=== PATIENT | female | born 2005 | race Caucasian/White ===

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

== ENCOUNTER 2025-04-16 08:04 | Outpatient (REF) | payer OTHER, SELFPAY ==
[2025-04-16 10:18] LABS: MANUAL DIFF FLAG NO
[2025-04-16 10:29] LABS: Appearance Urine Clear; Glucose Urine UA Negative (Negative); PH 5.5 (5.0-9.0); Specific Gravity - Urine >= 1.030 (1.005-1.025)
[2025-04-16 10:39] LABS: Hematocrit 37.6 % (37.0-47.0); Hemoglobin 12.3 g/dl (12.0-16.0); Imm Gran Abs Auto 0.02 X10*3/uL (0.00-0.03); Imm Gran Pct Auto 0.3 % (0.0-0.4); Lymphocytes Absolute Auto 2.2 X10*3/uL (1.2-4.9); Mean Corpuscular HGB Conc 32.7 g/dl (31.0-35.0); Mean Corpuscular Hemoglobin 28.0 pg (27.0-33.0); Mean Corpuscular Volume 85.6 fL (80.0-98.0); NRBC Abs Auto 0.000 X10*3/uL (0.0-0.012); NRBC Pct Auto 0.0 /100WBC (0.0-0.2); Platelet Count 272 X10*3/uL (160-400); Red Blood Count 4.39 X10*6/uL (4.20-5.50); White Blood Count 6.3 X10*3/uL (4.8-10.8)
[2025-04-16 11:19] LABS: Alanine Aminotransferase 19 U/L (0-31); Albumin Level 4.9 g/dL (3.5-5.0); Alkaline Phosphatase 49 U/L (39-117); Anion Gap 11 (12-20); Aspartate Amino Transferase 20 U/L (5-31); Blood Urea Nitrogen 12 mg/dL (9-16); Calcium 9.3 mg/dL (8.4-10.2); Carbon Dioxide 24 mmol/L (22-29); Chloride 109 mmol/L (96-108); Cholesterol 164 mg/dL (<200); Estimated Glomerular Filt Rate > 60; HDL Cholesterol 44 mg/dL (>40); Potassium 3.7 mmol/L (3.3-5.1); Sodium 140 mmol/L (135-145); Total Protein 7.2 g/dL (6.5-8.0); Triglycerides 66 mg/dL (<150)
== END 2025-04-16 08:05 | disposition home or self-care (01) ==
LOC: HO.HMGCLDS 08:04
PROVIDERS: PCP Internal Medicine; Visit Provider Internal Medicine
DX: Z00.00 Encounter for general adult medical examination without abnormal findings (principal)
CPT/HCPCS: 36415; 80053; 80061; 81001; 84443; 85025; 96127

== ENCOUNTER 2025-04-16 08:04 | Outpatient (AMB) | payer OTHER, SELFPAY ==
--- OUTSIDE RECORDS SUMMARY | 2025-04-16 08:07 | XMS_ITS | Encounter Summary ---
Author Organization [facility] Address [address] [place] [id number] Care Team Providers Care Adolescent Medicine Specialist Name Role Phone None, Pcp Primary Care Provider Unavailabl e Anna Garsia MD Unavailable [phone] None, Pcp Primary Care Provider Unavailabl e Encounter Details Date Type Department Care Team (Late st Contact Info) Description 02/23/2024 Lab Requisition [facility] [address] [place] [address] [phone] Anastasia Ziegler NP [address] [place] [address] Acute pharyngitis, unspecified Social History Tobacco Use Types Packs/Day Years Used Date Smoking Tobacco: Never Assessed Comments Unknown Sex and Gender Information Value Date Recorded Sex Assigned at Not on file Legal Sex Female 6:42 PM EST Gender Identity Not on file Sexual Orientation Not on file documented as of this encounter Plan of Treatment Not on file documented as of this encounter Procedures Procedure Name Priority Date/Time Associated Diagnosis Comments CULTURE, AEROBIC, STREP A, THROAT Routine 02/23/2024 6:42 PM EST Acute pharyngitis, unspecified documented in this encounter Results * Culture, Aerobic, Strep A, throat (02/23/2024 6:42 PM EST) Culture No Beta hemolytic Streptococcus group A, C or G HAFSA 02/26/2024 3:24 PM EST [facility] Respiratory STRUCTURE OF ANTERIOR REGION OF NECK / Unknown 02/23/2024 6:42 PM EST 02/23/2024 6:42 PM EST Anastasia Ziegler TECHNOLOGY TRAINING ASSOCIATE MICROBIOLOGY - GENERAL ORDERA BLES Final Result [facility] [address] [facility] [place] [address], documented in this encounter Visit Diagnoses Diagnosis Acute pharyngitis, unspecified documented in this encounter Care Teams Adolescent Medicine Specialist Relationship Specialty Start Date End Date None, MD Bel PCP - General 01/21/24 07/15/24 Anna Garsia MD [address] [place] [address] PCP - Insurance Assigned PCP 02/23/24 None, MD Bel PCP - General 07/16/24 documented as of this encounter
--- OUTSIDE RECORDS SUMMARY | 2025-04-16 08:07 | XMS_ITS | Clinical Summary ---
Author Organization [facility] Address [address] [place] [id number] Phone Care Team Providers Care Burglar Alarm Inspector Name Role Phone Anna Garsia MD Primary Care Provider [phone] Allergies No known active allergies Medications No known medications Active Problems Problem Noted Date Diagnosed Date History of COVID-19 01/05/2022 Overview (01/05/2022): Tested positive via rapid antigen testing at home on 01/05/22. Mild symptoms at time of diagnosis. Chronic back pain 02/17/2021 Assessment & Plan (10/17/2023 11:14 AM EDT): Unchanged, no worse, it's alright Assessment & Plan (02/17/2021 4:35 PM EDT): [facility] when Dr. Escobedo was her PCP. Did some PT, without relief. Wishes to have another consult, [facility] discussed, mother will call. Menorrhagia with regular cycle 02/17/2021 Assessment & Plan (10/17/2023 11:28 AM EDT): Rose Marie reports that menses have been good, no concerns today Assessment & Plan (02/20/2021 2:31 AM EDT): Not screened for anemia since transfer here as a patient last year. CBC and Von Willebrand studies discussed. Consider OCP for improvement in menses. Anxiety 02/17/2021 Assessment & Plan (10/17/2023 11:26 AM EDT): Denies any concerns about anxiety or depression currently. Screens are negative today. She is very excited about the transition to college this fall! Assessment & Plan (02/20/2021 2:43 AM EDT): Encourage working with one of the behavioral health clinicians at [facility]. Warm handoff encouraged; Rose Marie did not feel prepared to do this and preferred to come back on a different day. Resolved Problems Problem Noted Date Diagnosed Date Resolved Date Acne vulgaris 06/27/2020 10/17/2023 Overview (06/27/2020): mixed type on face and back Need for case management follow-up 01/22/2020 10/17/2023 Overview (01/22/2020): Needs teen urine screen. Immunizations Immunization Administration Dates Next Due COVID-19 Pfizer, bivalent, 12+ years 03/30/2022 DTaP 10/08/2008, 6,01/31/2005,01/28,2004 HPV Vaccine 9 Valent 02/17/2021,06/04/2020,01/14 Hep A, ped/adol 04/25/2012,12/03/2009 Hep B, ped/adol 03/30/2005,01/31/2005,2004 HiB 03/30/2005,01/31/2005,2004 IPV 10/08/2008, 5,01/31/2005,12/08 Influenza, injectable, quadr ivalent, preservative free 03/30/2022,02/17/2021,01/15/2020 MMR 10/08/2008,2005 Meningococcal B Trumenba 10/17/2023,03/30/2022 Meningococcal Conj (Menactra) MCV4P 02/17/2021,0 12/23/2016 Meningococcal Conj (Menveo) MCV4O 12/23/2016 Pneumococcal Conjugate 2005,2004,01/31/2005,12/08 Tdap 12/18/2015 Varicella 10/08/2008,2005 Family History Medical History Relation Name Comments No Known Problems Father [address] COPD Maternal Grandfather Diabetes Maternal Grandmother Hypertension Maternal Grandmother Obesity Mother Sammie Tim Colon cancer Paternal Grandfather Kidney failure Paternal Grandfather Scoliosis Paternal Grandmother OCD Sister [address] OCD Sister [address] Relation Name Status Comments Father [address] Alive Maternal Grandfather Alive Maternal Grandmother Alive Mother Sammie Tim Alive Paternal Grandfather Paternal Grandmother Alive Sister [address] Alive Sister [address] Alive Social History Tobacco Use Types Packs/Day Years Used Date Smoking Tobacco: Never Smokeless Tobacco: Never Tobacco Cessation:Counseling Given: Not Answered Alcohol Use Standard Drinks/Week Comments Never 0 (1 standard drink = 0.6 oz pur e alcohol) Hunger/Food Answer Date Recorded In the last 12 months, did y ou or your family ever eat less than you felt you should because there wasn't enough money for food? No 10/17/2023 Stable Housing Answer Date Recorded Are you worried that in the next 2 months you may not have stable housing? No 10/17/2023 Transportation Concerns Answer Date Rec orded In the last 12 months, have you or your family ever had to go without healthcare because you didn't have a way to get there? No 10/17/2023 Hazards in Home Answer Date Recorded Think about the place you li ve. Do you have problems with any of the following? Pests (mice or roaches), mold, no/not working smoke detectors, water leaks, no window guards. No 2023 Financing Utilities Answer Date Recorde d In the last 12 months, has t he electric, gas, oil, or water company threatened to shut off your services in your home? No 10/17/2023 Safety at Home Answer Date Recorded Are you or your family worried about feeling saf e in your home? No 10/17/2023 Outside Support Answer Date Recorded Do you feel that you need mo re support from other people or programs to help you care for yourself or your family? No 10/17/2023 Understanding Health Concerns Answer Da te Recorded Do you need help understandi ng your or your child's healthcare needs (diagnosis, medications, plan, etc.)? No 10/17/2023 Financing Health Concerns Answer Date R ecorded In the last 12 months, was t here a time when your child needed to see a doctor or get medications or supplies but could not because of cost? No 10/17/2023 Missing School or Work Answer Date David rded Did you or your child miss s chool or work because of a health problem that could have been avoided? No 10/17/2023 Child Education Answer Date Recorded Do you have concerns about y our/your child's learning or behavior in school, preschool, or daycare? No 10/17/2023 Comments No Sex and Gender Information Value Date Recorded Sex Assigned at Female 10/17/2023 11:28 AM EDT Legal Sex Female 1:37 PM EDT Gender Identity Female 02/25/2023 11:18 AM EST Sexual Orientation Straight 10/17/2023 11 :28 AM EDT Last Filed Vital Signs Vital Sign Reading Time Taken Comments Blood Pressure 108/73 10/17/2023 10:59 AM EDT Pulse 76 10/17/2023 10:59 AM EDT Temperature 36.7 C (98 F) 06/01/2022 2:49 PM EST Respiratory Rate - - Oxygen Saturation - - Inhaled Oxygen Concentration - - Weight 45 kg (99 lb 4 oz) 10/17/2023 10:59 AM ED T Height 160 cm (5' 3 ) 10/17/2023 10:59 AM EDT Body Mass Index 17.58 10/17/2023 10:59 AM EDT Plan of Treatment Health Maintenance Due Date Last Done Comments Chlamydia and Gonorrhea Screening 04/19/2024 10/17/2023, 03/30/2022, 03/30/2022, Additional history exists Influenza Vaccines (#1) 2024 03/30/20, 02/17/2021, 01/15/2020 COVID-19 Vaccine ( season) 2024 03/30/2022, 04/13/2021, 09/29/2020, Additional history exists DTaP,Tdap,and Td Vaccines (6 - Td or Tdap) 12/17/2025 12/18/2015, 10/08/2008, 01/14/2006, Additional history exists HIB Vaccines Aged Out 03/30/2005, 01/17, 2004 No longer eligible based on patient's age to complete this topic Hepatitis B Vaccines Completed 03/30/2005, 01/31/2005, 2004 Pneumococcal Vaccine Completed 2005, 03/30/2005, 01/31/2005, Additional history exists IPV Vaccines Completed 10/08/2008, 03/19, 01/31/2005, Additional history exists MMR Vaccines Completed 10/08/2008, 2005 Varicella Vaccines Completed 10/08/2008, 2005 Hepatitis A Vaccines Completed 04/25/2012, 12/04/19 10 HPV Vaccines Completed 02/17/2021, 05/20, 01/15/2020 Meningococcal Vaccine Completed 02/17/2021 , 12/23/2016, 12/23/2016 Men B Vaccine Completed 10/17/2023, 03/30/2022 Procedures * Due to [place] [employer] law, this organization might not be sharing sensitive test results. Procedure Name Priority Date/Time Associated Diagnosis Comments CHLAMYDIA AND GONORRHEA, AMPLIFIED Routine 10/17/2023 11:04 AM EDT Well adult exam from Last 3 Months or Most Recently Relevant to Health Maintenance Results * Due to [place] [employer] law, this organization might not be sharing sensitive test results. * Chlamydia and Gonorrhoea, Amplified (Urine) (10/17/2023 11:04 AM EDT) C trach JIGAR Negative Negative [facility] N gonorrhoeae JIGAR Negative Negative [facility] Urine (Urine, Random (not clean void)) 10/17/2023 11:04 AM EDT 10/17/2023 Comment:Urine, Rando Narrative [facility] - 10/18/2023 7:06 PM EDT Performed at: [address] - [facility], [address], [place], [place] [id number] Fastener Sewing Machine Operator: Justin Ocampo MD, Phone: [phone] us Lety Tom NP LAB MICROBIOLOGY - GENERAL ORDER CHRIS Final Result [facility] [address] [place] [address] from Last 3 Months or Most Recently Relevant to Health Maintenance Insurance [facility] Care Teams Burglar Alarm Inspector Relationship Specialty Start Date End Date Anna Garsia MD [address] [place] [id number] PCP - General Pediatrics 12/22/19
--- OUTSIDE RECORDS SUMMARY | 2025-04-16 08:07 | XMS_ITS | Clinical Summary ---
Author Organization [facility] Address [address] [place] [address] Care Team Providers Care Steel Plate Printer Name Role Phone Anna Garsia MD Unavailable [phone] None, Pcp Primary Care Provider Unavailabl e Allergies No known active allergies Medications ondansetron (ZOFRAN-ODT) 4 MG disintegrating tablet Take 1 tablet (4 mg total) by mouth every 8 hours as needed for nausea. 10 tablet 5 Active polyethylene glycol (GLYCOLAX) 17 gram powder Take 17 g by mouth daily. 116 g 5 Active Social History Tobacco Use Types Packs/Day Years Used Date Smoking Tobacco: Never Assessed Comments Unknown Sex and Gender Information Value Date Recorded Sex Assigned at Not on file Legal Sex Female 6:42 PM EST Gender Identity Not on file Sexual Orientation Not on file Last Filed Vital Signs Vital Sign Reading Time Taken Comments Blood Pressure 125/88 07/16/2024 3:54 PM EDT Pulse 92 07/16/2024 3:54 PM EDT Temperature 37.1 C (98.7 F) 07/16/2024 3:54 PM EDT Respiratory Rate 20 07/16/2024 3:54 PM EDT Oxygen Saturation 100% 07/16/2024 3:54 PM EDT Inhaled Oxygen Concentration - - Weight 45.4 kg (100 lb) 07/16/2024 3:54 PM EDT Height 157.5 cm (5' 2 ) 07/16/2024 3:54 PM EDT Body Mass Index 18.29 07/16/2024 3:54 PM EDT Plan of Treatment Health Maintenance Due Date Last Done Comments Depression Screening 2016 Chlamydia and Gonorrhea Screening 09/29/2019 Hepatitis C Screening 2022 COVID-19 Vaccine ( season) 2024 03/30/2022 Influenza Vaccine (#1) 2024 , 02/17/2021, 01/15/2020 DTaP,Tdap,and Td Vaccines (6 - Td or Tdap) 12/17/2025 12/18/2015, 10/08/2008, 01/14/2006, Additional history exists Blood Pressure 07/16/2028 07/16/2024 Pneumococcal Vaccine Aged Out 2005, 03/30/2005, 01/31/2005, Additional history exists No longer eligible based on patient's age to complete this topic Meningococcal Vaccines Completed , 12/23/2016, 12/23/2016 Meningococcal B Vaccines Completed 10/17/2023, 03/19 Insurance Care Teams Steel Plate Printer Relationship Specialty Start Date End Date Anna Garsia MD [address] [place] [address] PCP - Insurance Assigned PCP 02/23/24 None, MD Bel PCP - General 07/16/24
--- NOTE | 2025-04-16 08:16 | A.OFFPC_ITS ---
Vital Signs 04/16/25 08:17 Height 5 ft 2 in Weight 100 lb BMI 18.3 BP 108/64 Blood Pressure Location Rt brachial Position Sitting Respiration 16 Pulse 74 Pulse Source Pulse Oximeter Temp 98.5 F Temp Source Oral Pulse Oximetry (%) 97 Oxygen Delivery Method Room Air Intake Visit Reasons: ALLERGY AND IMMUNOLOGY SPECIALIST Intake Note: Pt is here today for New patient visit PE. Allergies No Known Allergies Allergy (Verified 04/16/25 08:19) Medication List - Last Reconciled 04/16/25 by Corine Salazar MD No Known Home Meds Tobacco use date assessed: 04/16/25 Dental Screening Dental Screen Date: 04/16/25 Did you have a dental visit in the last 12 months?: Yes Did you have a dental problem in the last 6 months where you did not have access to dental care?: No Was dental information given to patient?: Patient has dentist HPI ALLERGY AND IMMUNOLOGY SPECIALIST HPI Details Patient presents for new patient physical PFSH Medical History (Updated 04/16/25 @ 10:55 by Corine Salazar MD) Annual physical exam Surgical History (Updated 04/16/25 @ 08:22 by RUSTAM Wen) No pertinent past surgical history Family History (Updated 04/16/25 @ 08:23 by RUSTAM Wen) Father No problems noted. Mother No problems noted. Social History Housing: House Patient Tobacco Use Status: Never used Tobacco e-Cigarette/Vaping Use: Never Used service: No Current occupational status: student Cognitive needs: No Hearing needs: No Vision needs: Yes Questionnaire PHQ-9 Over the last 2 weeks, how often have you been bothered by any of the following problems? 1. Little interest or pleasure in doing things: not at all 2. Feeling down, depressed, or hopeless: not at all 3. Trouble falling or staying asleep, or sleeping too much: not at all 4. Feeling tired or having little energy: not at all 5. Poor appetite or overeating: not at all 6. Feeling bad about yourself - or that you are a failure or have let yourself or your family down: not at all 7. Trouble concentrating on things, such as reading the newspaper or watching television: not at all 8. Moving or speaking so slowly that other people could have noticed. Or the opposite - being so fidgety or restless that you have been moving around a lot more than usual: not at all 9. Thoughts that you would be better off or of hurting yourself in some way: not at all Total score: 0 Depression Screening Interpretation: Negative Depression Screening Done: Yes 81939 - PHQ-9 Billing: Yes Source: Developed by Drs. David Gordillo, Elba Viveros, Shahram Goldstein and colleagues, with an educational kandace from [employer]. Thrive Questionnaire Date Thrive assessed: 04/16/25 I am a: Patient What is your living situation today?: I have a steady place to live Within the past 12 months, did the food you bought not last and you didn't have the money to get more?: Never true Within the past 12 months, did you worry whether your food would run out before you got money to buy more?: Sometimes True Do you have trouble paying for medicines?: No Do you have trouble getting transportation to medical appointments?: No Do you have trouble paying your heating and electricity bill?: No Do you have trouble taking care of your child, family member or friend?: No Do you have trouble with day-to-day activities such as bathing, preparing meals, shopping, managing finances, etc.?: No Are you currently unemployed and looking for a job?: No Are you interested in more education?: Yes Please select the resources that you would like help with: None Currently or been in a relationship where the following occur: No concerns reported THRIVE Score: 1 AUDIT C Alcohol Use Questionnaire (AUDIT-C) 1. How often do you have a drink containing alcohol?: Monthly or less 2. How many drinks containing alcohol do you have on a typical day when you are drinking?: 1 or 2 3. How often do you have six or more drinks on one occasion?: Never Total Score: 1 BETO-7 AMB Questionnaire BETO-7 Date BETO - 7 assessed: 04/16/25 Feeling nervous, anxious, or on edge: 1 = Several days Not being able to stop or control worryin = Not at all Worrying too much about different things: 0 = Not at all Trouble relaxin = Not at all Being so restless that it is hard to sit still: 0 = Not at all Becoming easily annoyed or irritable: 1 = Several days Feeling afraid as if something awful might happen: 0 = Not at all Total BETO-7 score (0-4 normal; 5-9 mild; 10-14 moderate; 15-21 severe): 2 Source: Developed by Drs. David Gordillo, Elba Viveros, Shahram Goldstein and colleagues, with an educational kandace from [employer]. BETO-7 Assessment Billing BETO-7 Assessment Tool: BETO-7 Assessment 21135 Review of Systems Const All systems reviewed & are unremarkable except as noted in HPI and below Eyes Reports no additional complaints ENT Reports no additional complaints Card Reports no additional complaints Resp Reports no additional complaints GI Reports no additional complaints Reports no additional complaints Physical exam (Primary Care) Vital Signs: Last Vital Signs Temp 98.5 F 04/16/25 08:17 Pulse 74 04/16/25 08:17 Resp 16 04/16/25 08:17 BP 108/64 04/16/25 08:17 Pulse Ox 97 04/16/25 08:17 Oxygen Delivery Method Room Air 04/16/25 08:17 BMI result Body Mass Index 18.3 Tobacco/Smoking Status: Tobacco use Status Tobacco use date assessed 04/16/25 04/16/25 08:24 Patient Tobacco Use Status Never used Tobacco 04/16/25 08:24 e-Cigarette/Vaping Use Never Used 04/16/25 08:24 PHQ-9: PHQ-9 Score PHQ-9: Total score 0 04/16/25 08:24 Depression Screening Interpretation: Negative Thrive Assessment: Date of Thrive Assessment Date Thrive assessed 04/16/25 04/16/25 08:24 Currently or been in a relationship where the following occur: No concerns reported Const General: no acute distress HENMT Head: Yes normal to inspection Ears: TM's normal bilaterally Face and sinus: Yes normal facial exam Mouth: Normal oral and palatal mucosa present Eyes General: appearance normal, both eyes and all related structures Neck Neck: Yes no lymphadenopathy and Yes supple Resp Effort & Inspection: normal respiratory effort Auscultation: clear to auscultation bilaterally Cardio Rhythm: regular rhythm Heart sounds: S1 normal heart sound present and S2 normal heart sound present GI Inspection: Yes normal to inspection Palpation (GI): Soft to palpation Percussion: Yes normal to percussion Auscultation: normal bowel sounds Coding Level of Care Code New Pt Prev Care 18-39yr([id number] Diagnoses Annual physical exam Z00.00 Additional Codes BETO-7 Assessment Billing - BETO-7 Assessment Tool: BETO-7 Assessment 22668 ([id number]) PHQ-9 - 07312 - PHQ-9 Billing: Yes ([id number]) Assessment & Plan Assessment & Plan (1) Annual physical exam: Code(s): Z00.00 - Encounter for general adult medical examination without abnormal findings Category: Medical Plan: Well-balanced diet regular physical activity discussed with the patient. She will have a fasting blood work today. Patient declined pelvic exam and Pap smear Orders: Orders Complete Blood Count Auto Diff Today Z00.00 - Encounter for general adult medical examination without abnormal findings Lipid Panel Today Z00.00 - Encounter for general adult medical examination without abnormal findings TSH reflex Free T4 Today Z00.00 - Encounter for general adult medical examination without abnormal findings Comprehensive [place]. Panel Fast Today Z00.00 - Encounter for general adult medical examination without abnormal findings UA w Microscopic Today Z00.00 - Encounter for general adult medical examination without abnormal findings
[2025-04-16 08:17] VITALS: BP 108/64; PULSE 74; RESP 16; TEMP 36.9; O2SAT 97; BMI 18.3
== END 2025-04-16 10:57 | disposition home or self-care (01) ==
LOC: HO.HMCC 08:05
PROVIDERS: PCP Internal Medicine; Visit Provider Internal Medicine
DX: Z00.00 Encounter for general adult medical examination without abnormal findings (principal)